=== PATIENT | female | born 1975 ===

== ENCOUNTER 2023-11-11 04:13 | Day surgery (SDC) | payer BC ==
[2023-11-07 11:49] VITALS: BMI 28.3
[2023-11-11 09:32] VITALS: RESP 18
[2023-11-11] MEDS ORDERED: MIDAZOLAM HCL 2 MG/2 ML SINGLE DOSE VIAL ONE ×2 (11:05→11:33)
[2023-11-11] MEDS ORDERED: PROPOFOL 20 ML ONE (11:35)
[2023-11-11] MEDS ORDERED: ELECTROLYTE-148 SOLN 1,000 ML IV SCH (11:45)
[2023-11-11 13:13] VITALS: BP 114/67; PULSE 76; TEMP 97.5
== END 2023-11-11 14:08 | disposition home or self-care (01) ==
LOC: JASU-SURG 04:13
PROVIDERS: ATTEND Urology
PROC: 0TF3XZZ Fragmentation in Right Kidney Pelvis, External Approach (ICD-10-PCS; principal; 2023-11-11 11:30)
DX: N20.0 Calculus of kidney (principal)
CPT/HCPCS: 81025